=== PATIENT | male | born 1940 | race Two or more races ===

== ENCOUNTER 2023-01-25 07:27 | Emergency (ER) | payer MEDICARE ==
[~2023-01-25] VITALS: Ht 170.2 cm; Wt 81.6 kg
--- NOTE | 2023-01-25 07:33 | NUR ---
seen and examined by
--- NOTE | 2023-01-25 07:48 | NUR ---
Sent UA to lab.
[2023-01-25 07:54] LABS: *BILIRUBIN,URIN NEGATIVE (NEGATIVE); *BLOOD, URINE 1+ (NEGATIVE); *CLARITY,URINE CLEAR (CLEAR); *COLOR,URINE YELLOW (YELLOW); *KETONES,URINE 1+ (NEGATIVE); *UROBILINOGEN,URINE 0.2 E.U./dl (NORMAL); LEUKOCYTE ESTERASE ,URINE NEGATIVE (NEGATIVE); NITRITE, URINE NEGATIVE (NEGATIVE); UGLUCOSE NEGATIVE (NEGATIVE)
[2023-01-25 07:58] LABS: HEMATOCRIT 37.9 % (36.7-47.1); MEAN CORPUSCULAR HEMOGLOBIN 30.3 uug (23.8-33.4); MEAN CORPUSCULAR VOLUME 90.6 fL (73.0-96.2); PLATELET COUNT (AUTO) 159 K/uL (152-348)
[2023-01-25 08:06] LABS: CARBON DIOXIDE 22 mmol/L (21-32); CHLORIDE 103 mmol/L (98-107); CREATININE 1.2 mg/dL (0.6-1.3); GLUCOSE 127 mg/dL (74-106); POTASSIUM 3.5 mmol/L (3.5-5.1); UREA NITROGEN, BLOOD 26 mg/dL (7-18)
[2023-01-25] MEDS ORDERED: CEPH500C2 PO (08:35)
[2023-01-25 08:43] VITALS: BP 131/50
--- NOTE | 2023-01-25 08:43 | NUR ---
Patient discharged to home in stable condition. Written and verbal after care instructions given. Patient verbalizes understanding of instructions. Gave patient an extra leg bag for bronson catheter. Stressed follow up or return to ER for worsening s/s.
[2023-01-25 10:34] LABS: BACTERIA,URINE NONE SEEN /HPF (NONE SEEN); CALCIUM CARBONATE CRYSTALS,UR NONE SEEN /HPF (NONE SEEN); CALCIUM OXALATE CRYSTALS,UR NONE SEEN /HPF (NONE SEEN); CALCIUM PHOSPHATE CRYSTALS,UR NONE SEEN /HPF (NONE SEEN); COARSE GRANULAR CASTS,URINE NONE SEEN /LPF; CYSTINE CRYSTALS,URINE NONE SEEN /HPF (NONE SEEN); FATTY CASTS,URINE NONE SEEN /LPF (NONE SEEN); MUCUS,URINE NONE SEEN /LPF (0-FEW); RED BLOOD CELL CASTS,URINE NONE SEEN /LPF (NONE SEEN); SPERM,URINE NONE SEEN /HPF (NONE SEEN); SQUAMOUS EPITHELIAL CELL,UR FEW /HPF (NONE SEEN); TRICHOMONAS,URINE NONE SEEN /HPF (NONE SEEN); TRIPLE PHOSPHATE CRYSTAL,UR NONE SEEN /HPF (NONE SEEN); TYROSINE CRYSTAL,URINE NONE SEEN /HPF (NONE SEEN); URIC ACID CRYSTALS,URINE NONE SEEN /HPF (NONE SEEN); URINE AMORPHOUS PHOSPHATES NONE SEEN /HPF; URINE AMORPHOUS URATE NONE SEEN /HPF; WAXY CASTS,URINE NONE SEEN /LPF (NONE SEEN); WBC,URINE 0-3 /HPF (0-3); YEAST,URINE NONE SEEN /HPF (NONE SEEN)
== END 2023-01-25 08:44 | disposition home or self-care (01) ==
LOC: ER 07:35
DX: R33.9 Retention of urine, unspecified (principal); N40.0 Benign prostatic hyperplasia without lower urinary tract symptoms; Z79.899 Other long term (current) drug therapy
CPT/HCPCS: 36415; 51702; 85025; A4663

== ENCOUNTER 2023-02-01 09:42 | Emergency (ER) | payer MEDICARE ==
[~2023-02-01] VITALS: Ht 170.2 cm; Wt 81.6 kg
[~2023-02-01 09:42] MED LIST: CEPH500C2 PO
--- NOTE | 2023-02-01 10:13 | NUR ---
RO CATH REMOVED PER MD ORDER AND UPON REQUEST OF PATIENT. PT INSTRUCTED TO FOLLOW-UP WITH PRIMARY UROLOGIST.
== END 2023-02-01 10:29 | disposition home or self-care (01) ==
LOC: ER 09:42
DX: Z46.6 Encounter for fitting and adjustment of urinary device (principal); Z87.438 Personal history of other diseases of male genital organs; Z79.2 Long term (current) use of antibiotics
CPT/HCPCS: A4663

== ENCOUNTER 2023-05-28 10:32 | Emergency (ER) | payer MEDICARE ==
[~2023-05-28] VITALS: Ht 172.7 cm; Wt 70.3 kg
[2023-05-28 10:36] VITALS: O2SAT 100
[2023-05-28] MEDS ORDERED: SULF1TAB48 PO (11:12)
[2023-05-28 11:31] LABS: *BILIRUBIN,URIN NEGATIVE (NEGATIVE); *CLARITY,URINE CLEAR (CLEAR); *COLOR,URINE YELLOW (YELLOW); *KETONES,URINE 1+ (NEGATIVE); *PROTEIN,URINE NEGATIVE (NEGATIVE); *UROBILINOGEN,URINE 0.2 E.U./dl (NORMAL); LEUKOCYTE ESTERASE ,URINE NEGATIVE (NEGATIVE); NITRITE, URINE NEGATIVE (NEGATIVE); UGLUCOSE NEGATIVE (NEGATIVE)
[2023-05-28 11:41] LABS: *BLOOD, URINE TRACE (NEGATIVE)
[2023-05-28 12:22] LABS: BACTERIA,URINE NONE SEEN /HPF (NONE SEEN); RBC,URINE 0-3 /HPF (0-3); SQUAMOUS EPITHELIAL CELL,UR FEW /HPF (NONE SEEN); WBC,URINE NONE SEEN /HPF (0-3)
== END 2023-05-28 12:15 | disposition home or self-care (01) ==
LOC: ER 10:32
DX: R33.9 Retention of urine, unspecified (principal); Z87.438 Personal history of other diseases of male genital organs; Z79.899 Other long term (current) drug therapy
CPT/HCPCS: 51702; A4663

== ENCOUNTER 2023-05-30 03:40 | Emergency (ER) | payer MEDICARE ==
[~2023-05-30] VITALS: Ht 172.7 cm; Wt 70.3 kg
[~2023-05-30 03:40] MED LIST changes: +SULF1TAB48 PO
[2023-05-30 05:14] VITALS: BP 150/82; TEMP 97.9; O2SAT 99
== END 2023-05-30 05:13 | disposition home or self-care (01) ==
LOC: ER 03:50
DX: R33.9 Retention of urine, unspecified (principal); Z79.899 Other long term (current) drug therapy
CPT/HCPCS: 51702; A4663

== ENCOUNTER 2023-06-02 18:58 | Emergency (ER) | payer MEDICARE ==
[~2023-06-02] VITALS: Ht 172.7 cm; Wt 70.3 kg
[2023-06-02 19:52] LABS: *BILIRUBIN,URIN NEGATIVE (NEGATIVE); *BLOOD, URINE 3+ (NEGATIVE); *CLARITY,URINE CLEAR (CLEAR); *COLOR,URINE YELLOW (YELLOW); *KETONES,URINE NEGATIVE (NEGATIVE); *PROTEIN,URINE 2+ (NEGATIVE); *UROBILINOGEN,URINE 0.2 E.U./dl (NORMAL); LEUKOCYTE ESTERASE ,URINE TRACE (NEGATIVE); NITRITE, URINE NEGATIVE (NEGATIVE); PH,URINE 5.5 (5.0-8.0); UGLUCOSE NEGATIVE (NEGATIVE)
[2023-06-02 20:04] LABS: BACTERIA,URINE FEW /HPF (NONE SEEN); RBC,URINE 20-50 /HPF (0-3)
[2023-06-02 20:08] VITALS: BP 149/74; O2SAT 95
== END 2023-06-02 20:08 | disposition home or self-care (01) ==
LOC: ER 19:10
DX: R31.1 Benign essential microscopic hematuria (principal); Z79.899 Other long term (current) drug therapy
CPT/HCPCS: A4663

== ENCOUNTER 2023-07-04 07:30 | Emergency (ER) | payer MEDICARE ==
[~2023-07-04] VITALS: Ht 172.7 cm; Wt 70.3 kg
[2023-07-04 07:40] VITALS: O2SAT 98
[2023-07-04 08:23] LABS: BASOPHILS % (AUTO) 0.3 % (0.0-2.0); EOSINOPHILS # (AUTO) 0.1 K/uL (0.0-0.7); EOSINOPHILS % (AUTO) 1.6 % (0.0-7.0); HEMATOCRIT 35.6 % (36.7-47.1); HEMOGLOBIN 12.2 g/dL (12.5-16.3); LYMPHOCYTES # (AUTO) 1.6 K/uL (0.8-4.8); LYMPHOCYTES % (AUTO) 19.8 % (20.5-51.5); MEAN CORPUSCULAR HEMOGLOBIN 30.7 uug (23.8-33.4); MEAN CORPUSCULAR HGB CONC 34 g/dL (32.5-36.3); MEAN CORPUSCULAR VOLUME 89.1 fL (73.0-96.2); MONOCYTES # (AUTO) 0.4 K/uL (0.1-1.30); MONOCYTES % (AUTO) 5.1 % (0.0-11.0); NEUTROPHILS # (AUTO) 5.9 K/uL (1.8-8.9); NEUTROPHILS % (AUTO) 73.2 % (38.5-71.5); PLATELET COUNT (AUTO) 197 K/uL (152-348); RED BLOOD CELL COUNT(AUTO) 3.99 MIL/uL (4.06-5.63); WHITE BLOOD COUNT (AUTO) 8.1 K/uL (3.6-10.2)
[2023-07-04 08:36] LABS: DIFFERENTIAL COMMENT 1
[2023-07-04 08:37] LABS: *BILIRUBIN,URIN NEGATIVE (NEGATIVE); *BLOOD, URINE 3+ (NEGATIVE); *CLARITY,URINE SLIGHTLY CLOUDY (CLEAR); *COLOR,URINE YELLOW (YELLOW); *KETONES,URINE NEGATIVE (NEGATIVE); *UROBILINOGEN,URINE 0.2 E.U./dl (NORMAL); LEUKOCYTE ESTERASE ,URINE 3+ (NEGATIVE); NITRITE, URINE POSITIVE (NEGATIVE); UGLUCOSE NEGATIVE (NEGATIVE)
[2023-07-04 08:42] LABS: *PROTEIN,URINE 3+ (NEGATIVE)
[2023-07-04 08:48] LABS: CALCIUM 8.6 mg/dL (8.5-10.1); CARBON DIOXIDE 27 mmol/L (21-32); CHLORIDE 105 mmol/L (98-107); CREATININE 0.9 mg/dL (0.6-1.3); GLUCOSE 99 mg/dL (74-106); SODIUM SERUM 141 mmol/L (136-145); UREA NITROGEN, BLOOD 16 mg/dL (7-18)
[2023-07-04 08:56] LABS: ALANINE AMINOTRANSFERASE 21 U/L (16-63); ALBUMIN 3.2 g/dL (3.4-5.0); ALKALINE PHOSPHATASE 93 U/L (50-136); ASPARTATE AMINOTRANSFERASE 19 U/L (15-37); BILIRUBIN,DIRECT 0.1 mg/dL (0.0-0.2); BILIRUBIN,TOTAL 0.3 mg/dL (0.2-1.0); TOTAL PROTEIN, SERUM 6.8 g/dL (6.4-8.2)
[2023-07-04 09:07] LABS: BACTERIA,URINE MODERATE /HPF (NONE SEEN); RBC,URINE TNTC /HPF (0-3); WBC,URINE TNTC /HPF (0-3)
[2023-07-04] MEDS ORDERED: CEFTRIAXONE /D5W 50ML IVPB **ER PYXIS IV ONE (09:40)
[2023-07-04] MEDS ORDERED: CEFTRIAXONE 1 G in IV DEXTROSE 5% 50 ML IV ONE (09:45)
[2023-07-04] MEDS ORDERED: IV NS 1000 ML 1,000 ML IV ONE (09:45)
[2023-07-04] MEDS ORDERED: NITR100C11 PO (11:18)
== END 2023-07-04 11:27 | disposition home or self-care (01) ==
LOC: ER 07:30
DX: N39.0 Urinary tract infection, site not specified (principal); R31.0 Gross hematuria; Z79.899 Other long term (current) drug therapy
CPT/HCPCS: 36415; 83605; 85025; 85730; A4606; A4663; J0696; J7040